=== PATIENT | male | born 1970 | race Asian ===

== ENCOUNTER 2025-04-10 07:27 | Emergency (ER) | payer MEDICARE ==
[~2025-04-10] VITALS: Ht 170.2 cm; Wt 75.0 kg
[2025-04-10 07:36] VITALS: O2SAT 99
[2025-04-10 08:11] LABS: BASOPHILS % 1.9 % (0.0-2.0); EOSINOPHILS % 2.5 % (0.0-5.0); HEMATOCRIT. 39.8 % (42.0-52.0); HEMOGLOBIN. 13.5 g/dL (14.0-18.0); LYMPHOCYTES % 27.5 % (20.0-50.0); MEAN PLATELET VOLUME 7.1 fl (7.4-10.4); MONOCYTES % 6.7 % (2.0-8.0); NEUTROPHILS % 61.4 % (40.0-76.0); PLATELET 360 x1000/uL (130-400); RED BLOOD CELL COUNT 4.45 mill/uL (4.7-6.1); RED CELL DISTRIBUTION WIDTH 13.8 % (11.6-14.6)
[2025-04-10 08:23] LABS: CREATININE 0.6 mg/dL (0.6-1.3)
[2025-04-10 08:24] LABS: ETHANOL BLOOD < 10 mg/dL (<10); UREA NITROGEN BLOOD 8 mg/dL (9-23)
[2025-04-10 08:25] LABS: ASPARTATE AMINOTRANSFERASE 21 IU/L (<34)
[2025-04-10 08:26] LABS: BILIRUBIN DIRECT 0.2 mg/dL (<=3.0); BILIRUBIN TOTAL 0.7 mg/dL (0.1-1.0); PROTEIN TOTAL 6.4 g/dL (6.0-8.3)
[2025-04-10 10:04] LABS: CLARITY URINE CLOUDY (CLEAR); COLOR URINE YELLOW (YELLOW); GLUCOSE URINE NEGATIVE (NEGATIVE); KETONES URINE NEGATIVE (NEGATIVE); LEUKOCYTE ESTERASE URINE NEGATIVE (NEGATIVE); NITRITE URINE NEGATIVE (NEGATIVE); OCCULT BLOOD URINE NEGATIVE (NEGATIVE); PH URINE 7.0 (4.5-8.0); PROTEIN URINE NEGATIVE (NEGATIVE); SPECIFIC GRAVITY URINE 1.010 (1.005-1.030); UROBILINOGEN URINE 0.2 E.U./dL (0.2-1.0)
[2025-04-10 10:15] LABS: MUCUS URINE 4+ /lpf (NONE/TRACE); RBC URINE NONE SEEN /hpf (0-2); SQUAMOUS EPITHELIAL CELL URINE FEW /lpf (RARE/1+); WBC URINE 0-2 /hpf (0-2)
[2025-04-10 10:16] LABS: BACTERIA URINE NONE SEEN
[2025-04-10 10:22] LABS: *AMPHETAMINES SCREEN URINE PRESUMPTIVE POSITIVE (NEGATIVE)
[2025-04-10 10:23] LABS: *BARBITURATES SCREEN URINE NEGATIVE (NEGATIVE); *BENZODIAZEPINES SCREEN URINE NEGATIVE (NEGATIVE); *COCAINE SCREEN URINE NEGATIVE (NEGATIVE); CANNABINOID URINE SCREEN NEGATIVE (NEGATIVE); ECSTASY MDMA SCREEN URINE NEGATIVE (NEGATIVE); METHADONE URINE SCREEN NEGATIVE (NEGATIVE); OPIATES URINE SCREEN NEGATIVE (NEGATIVE); PHENCYCLIDINE URINE SCREEN NEGATIVE (NEGATIVE)
[2025-04-10 15:28] VITALS: BP 138/83; PULSE 68; RESP 16; TEMP 36.7; O2SAT 99
[2025-04-10] MEDS ORDERED: RISPERIDONE 0.5MG TABLET PO SCH (21:00)
== END 2025-04-10 15:50 | disposition short-term general hospital (02) ==
LOC: ER 07:27
DX: R45.851 Suicidal ideations (principal); F20.9 Schizophrenia, unspecified; Z79.899 Other long term (current) drug therapy; Z20.822 Contact with and (suspected) exposure to COVID-19
CPT/HCPCS: 36415; 80048; 80076; 80305; 80307; 80320; 80329; 81003; 85025; 99285; G0480